=== PATIENT | female | born 1950 | race Caucasian/White ===

== ENCOUNTER 2017-04-01 18:18 | Emergency (ER) | payer MEDICARE, BC ==
[~2017-04-01] VITALS: Ht 154.9 cm; Wt 90.7 kg
[~2017-04-01 18:18] MED LIST: ALBU0.086 INH; ALBU6.7H INH; ASPI325T PO; AZEL0.05; B COTAB3 PO; COZA25TA PO; ESTER C PO; FEXO60TA PO; FLUC100T41 PO; LANO0.2510 PO; METO25 PO; NORT25CA PO; PLAV75TA PO; PREV30CA36 PO; PROM6.257 PO; SIMV40TA PO; SYMB160A INH; VITA-13 PO; VITA400C70 PO; ZITH250T PO; [UNRECOGNIZED DRUG - CODE] IV
[2017-04-01 18:20] VITALS: BP 163/94; PULSE 136; RESP 18; TEMP 97.7; O2SAT 96
[2017-04-01] MEDS ORDERED: IPRA17I INH (18:36)
[2017-04-01] MEDS ORDERED: CETI-1 PO (18:36)
[2017-04-01] MEDS ORDERED: GAMMAGLOBULIN IV (18:36)
[2017-04-01] MEDS ORDERED: CYMB60CA PO (18:36)
[2017-04-01] MEDS ORDERED: TRIA1SPR6 EACH NARE (18:36)
[2017-04-01] MEDS ORDERED: ZOCO20TA PO (18:36)
[2017-04-01] MEDS ORDERED: MONT10TA2 PO (18:36)
[2017-04-01] MEDS ORDERED: TOPR50TA PO (18:36)
[2017-04-01] MEDS ORDERED: COZA100T PO (18:36)
[2017-04-01] MEDS ORDERED: METF500 PO (18:36)
[2017-04-01] MEDS ORDERED: SYMB80AE INH (18:36)
[2017-04-01] MEDS ORDERED: DIGO0.25 PO (18:36)
--- NOTE | 2017-04-01 18:50 | PD ---
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 PT STATES THAT FOR PAST HOUR SHE HAS NOT FELT PALPITATIONS ANY MORE PFSH Past Medical History Hx Anticoagulant Therapy: Yes (ELIQUIS) Asthma: Yes Atrial Fibrillation: Yes Cardiovascular Problems: Yes (A. FIB) High Cholesterol: Yes Diabetes: Yes Patient Takes Glucophage: Yes Hypertension: Yes Immune Disorder: Yes (PRIMARY IMMUNE DEFICIENCY DISORDER) Respiratory: Yes (ASTHMA) ?: Not Past Surgical History Appendectomy: Yes Cholecystectomy: Yes Hysterectomy: Yes Other Surgery: Yes (TONSILS, SINUS X4, ) Social History Alcohol Use: No Tobacco Use: No Substance Use: No Allergies-Medications (Allergen,Severity, Reaction): Coded Allergies: Aleve (Verified Allergy, Severe, Shortness of Breath, 04/01/17) Toradol (Verified Allergy, Severe, Shortness of Breath, 04/01/17) Wheat (Verified Allergy, Unknown, 04/01/17) Reported Meds & Prescriptions Reported Meds & Active Scripts Active Reported Nasacort Allergy 24Hr Nasal (Triamcinolone Nasal) 55 Mcg/Act Spr 2 Lloyd EACH NARE DAILY [Gammaglobulin] 35 Mg IV MONTHLY Zyrtec (Cetirizine HCl) 10 Mg Tablet 35 Mg PO DAILY Toprol XL (Metoprolol Succinate) 50 Mg Tab 50 Mg PO DAILY Glucophage (Metformin HCl) 500 Mg Tab 500 Mg PO BIDPC With meals Cozaar (Losartan Potassium) 100 Mg Tab 100 Mg PO DAILY Singulair (Montelukast Sodium) 10 Mg Tab 10 Mg PO HS Zocor (Simvastatin) 20 Mg Tab 20 Mg PO DAILY Cymbalta DR (Duloxetine HCl) 60 Mg Capdr 60 Mg PO DAILY Digoxin 0.25 Mg Tab 0.25 Mg PO DAILY Symbicort Inh (Budesonide/Formoterol Fumarate) 80-4.5 Mcg/Act Aero 2 Puff INH Q12HR Atrovent HFA 12.9 GM Inh (Ipratropium [place]) 17 Mcg/Act Aer 2 Puff INH QID Review of Systems Cardiovascular: Positive: Palpitations Physical Exam Narrative GENERAL: SKIN: Warm and dry. HEAD: Atraumatic. Normocephalic. EYES: Pupils equal and round. No scleral icterus. No injection or drainage. ENT: No nasal bleeding or discharge. Mucous membranes pink and moist. NECK: Trachea midline. No JVD. CARDIOVASCULAR: Regular rate and rhythm. RESPIRATORY: No accessory muscle use. Clear to auscultation. Breath sounds equal bilaterally. GASTROINTESTINAL: Abdomen soft, non-tender, nondistended. Hepatic and splenic margins not palpable. MUSCULOSKELETAL: Extremities without clubbing, cyanosis, or edema. No obvious deformities. NEUROLOGICAL: Awake and alert. No obvious cranial nerve deficits. Motor grossly within normal limits. Five out of 5 muscle strength in the arms and legs. Normal speech. PSYCHIATRIC: Appropriate mood and affect; insight and judgment normal. Data Data Last Documented VS Vital Signs Date Time Temp Pulse Resp B/P Pulse Ox O2 Delivery O2 Flow Rate FiO2 04/01/17 18:20 97.7 136 18 163/94 96 Orders Electrocardiogram (04/01/17 18:48) [facility] Medical Decision Making Medical Screen Exam Complete: Yes Emergency Medical Condition: Yes Medical Record Reviewed: Yes Interpretation(s) NSR 69 NL INTERVALS, NONSPEC STTCHANGES, Differential Diagnosis AFIB S/P SPONT CONVERSION Narrative Course PATIENT SPONT CONVERTED AND EKG SHOWS NSR, PT IS ANTICOAG WITH ELIQUIS AND DENIES CP/SOB Diagnosis Primary Impression: ATRIAL FIBRILLATION S/P SPONTANEOUS CONVERSION Patient Instructions: Atrial Fibrillation (ED), General Instructions Disposition: 01 DISCHARGE HOME Condition: Stable Nas Ramon MD Apr 01, 2017 18:50
[2017-04-01 19:20] VITALS: BP 137/51; PULSE 65; RESP 16; O2SAT 98
--- NOTE | 2017-04-01 22:24 | EKG ---
Date Performed: 04/01/2017 Time Performed: 18:59:39 PTAGE: 66 years EKG: Sinus rhythm NONSPECIFIC ST & T-WAVE ABNORMALITY BORDERLINE ECG PREVIOUS TRACING : 10/27/2013 12.43 No significant change from previous tracing noted. DOCTOR: Samy Lugo Interpretating Date/Time 04/01/2017 22:23:35
== END 2017-04-01 19:25 | disposition home or self-care (01) ==
LOC: PHEFT 18:18
DX: I48.91 Unspecified atrial fibrillation (principal)
CPT/HCPCS: 93005; 99283

== ENCOUNTER → 2017-06-15 | Day surgery (SDC) | payer MEDICARE, BC ==
[~2017-06-15] MED LIST changes: -ALBU0.086 INH; -ALBU6.7H INH; -ASPI325T PO; -AZEL0.05; -B COTAB3 PO; +CETI-1 PO; +COZA100T PO; -COZA25TA PO; +CYMB60CA PO; +DIGO0.25 PO; -ESTER C PO; -FEXO60TA PO; -FLUC100T41 PO; +GAMMAGLOBULIN IV; +IPRA17I INH; +LACTATED RINGER'S 1000 ML INJ 1,000 ML ONE; -LANO0.2510 PO; +METF500 PO; -METO25 PO; +MONT10TA2 PO; -NORT25CA PO; -PLAV75TA PO; -PREV30CA36 PO; -PROM6.257 PO; +PROPOFOL 200 MG/20 ML AMP IV ONE; -SIMV40TA PO; -SYMB160A INH; +SYMB80AE INH; +TOPR50TA PO; +TRIA1SPR6 EACH NARE; -VITA-13 PO; -VITA400C70 PO; -ZITH250T PO; +ZOCO20TA PO; -[UNRECOGNIZED DRUG - CODE] IV
--- NOTE | 2017-06-15 10:37 | GIPROC ---
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 TOPICAL ANESTHETIC: none CONSENT: The patient understands the risks and benefits of the procedure and understands that these risks include, but are not limited to: sedation, allergic reaction, infection, perforation and/or bleeding. Alternative means of evaluation and treatment include, among others: physical exam, x-rays, and/or surgical intervention. The patient elects to proceed with this endoscopic procedure. medical equipment was checked for proper function. Hand hygiene and appropriate measures for infection prevention was taken. After the risks, benefits and alternatives of the procedure were thoroughly explained, Informed consent was verified, confirmed and timeout was successfully executed by the treatment team. The patient was anesthetized with topical anesthesia and the EC-[id number] ([id number]) endoscope was introduced through the mouth and advanced to the second portion of the duodenum. Retroflexed views revealed a hiatal hernia The gastroscope was then slowly withdrawn and removed. Duodenitis second portion-biopsy duodenitis duodenal bulb-biopsy gastritis antrum-biopsy esophagitis distal esophagus-biopsy spasm distal esophagus -s/p dialtation Savary 15, 17. ADVERSE EVENTS: There were no complications. IMPRESSIONS: 1. Duodenitis second portion-biopsy duodenitis duodenal bulb-biopsy gastritis antrum-biopsy esophagitis distal esophagus-biopsy spasm distal esophagus -s/p dialtation Savary 15, 17 2. Retroflexed views revealed a hiatal hernia RECOMMENDATIONS: 1. Await biopsy results. Biopsy results will not be ready for 7-10 days. If you don't hear from us in two weeks, call our office for biopsy results. 2. Anti-reflux regimen 3. Continue PPI 4. Dilatations PRN PATIENT CONDITION: stable DISPOSITION: Home REPEAT EXAM: Return 2 years EGD Fozia Francisco MD eSigned: Fozia Francisco MD 06/15/2017 10:37 AM cc: Radhames Burton PATIENT NAME: Amna Syed MR#: [id number]
== END | disposition home or self-care (01) ==
LOC: ESDC 08:22
PROVIDERS: ATTEND Internal Medicine Gastroenterology
DX: K29.70 Gastritis, unspecified, without bleeding (principal); K44.9 Diaphragmatic hernia without obstruction or gangrene; K29.80 Duodenitis without bleeding; K20.9 Esophagitis, unspecified; K22.4 Dyskinesia of esophagus
CPT/HCPCS: 00740; 43239; 88305; 88312; J3010; J7120